=== PATIENT | male | born 1995 | race Caucasian/White ===

== ENCOUNTER 2020-05-11 18:24 | Emergency (ER) | payer OTHER, SELFPAY ==
[2020-05-11 18:25] VITALS: BP 141/82; PULSE 78; RESP 14; TEMP 36.6; O2SAT 100; BMI 20.3
[2020-05-11] MEDS: PROPARACAINE 0.5% OPHTH SOL 1 DROPS EYE-RIGHT (18:44)
[2020-05-11] MEDS: FLUORESCEIN 1 MG STRIP EYE-BOTH (18:45)
--- NOTE | 2020-05-11 18:53 | ED.GENADULT ---
HPI - General Adult General Chief complaint: Eye Problems Stated complaint: metal in eye Time Seen by Provider: 05/11/20 18:35 Source: patient Mode of arrival: Ambulatory Limitations: no limitations History of Present Illness HPI narrative: Patient is a 24-year-old otherwise healthy male here for evaluation of what he states is a piece of metal in his left eye. He states that a couple days ago he was working under his truck without safety glasses on any piece of metal fell into his eye. He has tried over the past couple days to get it out on his own but has been unable to. No prior history of high issues. Does not wear corrective lenses or contact lenses. Has never had any surgeries on his eyes. His last tetanus shot was 1-2 years ago. No change in his vision. Related Data Previous Rx's Medication Instructions Recorded erythromycin 0.5 inch EYE-LEFT Q8H #3.5 g 05/11/20 Allergies Allergy/AdvReac Type Severity Reaction Status Date / Time No Known Drug Allergies Allergy Verified 05/11/20 18:30 Review of Systems Constitutional Constitutional: Denies fever(s) Eyes Eyes: Denies blurry vision, Denies change in vision and Reports irritation Comments: Foreign body left eye ENT Ears, Nose, Mouth, and Throat: Denies sore throat Cardiovascular Cardiovascular: Denies dyspnea Respiratory Respiratory: Denies dyspnea Integumentary/Breasts Skin/Breast: Denies lesions and Denies rash Hematologic/Lymphatic Hematologic/Lymphatic: Denies easy bleeding and Denies easy bruising Allergic/Immunologic Allergic/Immunologic: Denies urticaria Patient History Medical History Healthy adult Social History Smoking Status: Former smoker Smoking Status: Former smoker alcohol intake frequency: a few times a week Substance Use Type: marijuana Exam Initial Vital Signs Initial Vital Signs: Vital Signs Temperature 97.8 F 05/11/20 18:25 Pulse Rate 78 05/11/20 18:25 Respiratory Rate 14 05/11/20 18:25 Blood Pressure 141/82 H 05/11/20 18:25 Pulse Oximetry 100 05/11/20 18:25 Const General: cooperative, healthy appearing, comfortable and well developed HENGA Head: normal to inspection and normocephalic Eyes Cornea: corneas abnormal on the left foreign body metallic and with rust ring present Pupils: PERRL EOM: EOM intact bilaterally Skin Lesions: no lesions Rashes: no rashes Neuro General: patient alert, patient awake and patient oriented x3 Extrem General: normal to inspection and capillary refill normal Procedures Foreign Body EYE Time Out performed: Yes Location: eye (L) Topical anesthetic used: proparacaine Foreign body: metal Evidence of corneal penetration: No Technique: cotton tip swab and electric eda Procedure performed under: slit-lamp Post-procedure medication: ophthalmic antibiotic Patient tolerated procedure: no complications Complications: residual rust ring Course Orders Ordered: Discontinued Medications Erythromycin (Erythromycin Ophth 1 Gm Oint) 1 applic EYE-LEFT NOW ONE Stop: 05/11/20 18:54 Last Admin: 05/11/20 19:05 Dose: 1 applic Documented by: Fluorescein Sodium (Fluorescein 1 Mg Strip) 1 mg EYE-BOTH NOW ONE Stop: 05/11/20 18:36 Last Admin: 05/11/20 18:45 Dose: 1 mg Documented by: [place] Proparacaine HCl (Proparacaine 0.5% Ophth Myla) 1 drops EYE-RIGHT NOW ONE Stop: 05/11/20 18:36 Last Admin: 05/11/20 18:44 Dose: 1 drop Documented by: ALYSAOTEJose Manuel Vital Signs Vital signs: Vital Signs - 8 hr 05/11/20 18:25 05/11/20 19:14 Temperature 97.8 F Pulse Rate 78 78 Respiratory Rate 14 18 Blood Pressure 141/82 H 126/70 Pulse Oximetry 100 99 Medical Decision Making [facility] Narrative Medical decision making narrative: Initially attempted with a cotton tip applicator to remove the piece of metal as it was easily visualized at the 7 o'clock position. This was unsuccessful. Then had to moved to the slit lamp and a bur. I was able to remove the piece of metal however there was a residual rust ring. Will start the patient on antibiotics. He was given contact information instructions to contact the orthopedic department tomorrow for follow-up. He was given return precautions and follow-up instructions. He expressed understanding and agreement. Discharge Plan Departure Patient Disposition: Home Clinical Impression: Foreign body in cornea, left eye, initial encounter Instructions: DI for Corneal Foreign Body-Eye Activity Restrictions/Additional Instructions: You did have a piece of metal in your left eye. I was able to remove the piece of metal however there is what we call a residual rust ring. Please use the antibiotic ointment as directed. Tomorrow morning contact the [facility] at [phone] tomorrow morning for a follow-up. [facility]. Return to the emergency department for any new or worsening symptoms Prescriptions: New erythromycin 5 mg/gram (0.5 %) ointment 0.5 inch EYE-LEFT Q8H Qty: 3.5 RF: 0
[2020-05-11] MEDS: ERYTHROMYCIN OPHTH 1 GM OINT 1 APPLIC EYE-LEFT (19:05)
[2020-05-11 19:14] VITALS: BP 126/70; PULSE 78; RESP 18; O2SAT 99
== END 2020-05-11 19:15 | disposition home or self-care (01) ==
PROVIDERS: Emergency Provider Emergency Medicine
DX: T15.02XA Foreign body in cornea, left eye, initial encounter (principal)
CPT/HCPCS: 65222; 99281; 99283

== ENCOUNTER → 2025-06-07 16:19 | Outpatient (CLI) | payer BC, SELFPAY ==
--- NOTE | 2025-06-07 16:21 | DI.RAD.S_ITS ---
PROCEDURE: XR LUMBAR SPINE 2-3V INDICATIONS: chronic low back pain TECHNIQUE: 3 views of the lumbar spine were acquired. COMPARISON: None. FINDINGS: Bones: 5 [id number] vertebrae are present. There is trace retrolisthesis of L5 on S1. Mild disc and foraminal narrowing are present L5-S1. Pars defect is present at L5. No vertebral body compression fractures. No suspicious bony lesions. Soft tissues: Overlying bowel gas pattern is normal. No suspicious soft tissue calcifications. IMPRESSION: Retrolisthesis of L5 on S1 with what appears to be pars defect. Disc and foraminal narrowing are present. Dictated by: Ava Vale M.D. on 06/08/2025 at 0:53 Approved by: Ava Vale M.D. on 06/08/2025 at 0:53
== END ==
LOC: RAD 16:20
PROVIDERS: PCP Family Medicine; Referring Provider Family Medicine; Visit Provider Family Medicine
DX: M62.830 Muscle spasm of back (principal); M54.50 Low back pain, unspecified; G89.29 Other chronic pain
CPT/HCPCS: 72100